=== PATIENT | male | born 1970 | race Caucasian/White ===

== ENCOUNTER 2018-09-14 06:19 | Inpatient (IN) | payer OTHER ==
[2018-09-10 10:04] VITALS: BMI 35.3
[2018-09-14] MEDS ORDERED: fentaNYL CITRATE 250 MCG/5 ML VIAL ONE (07:04)
[2018-09-14] MEDS ORDERED: PROPOFOL 20 ML ONE ×19 (07:04→11:55)
[2018-09-14] MEDS ORDERED: ROCURONIUM BROMIDE 50 MG/5 ML SYRINGE ONE (07:04)
[2018-09-14] MEDS ORDERED: SUCCINYLCHOLINE CHLORIDE 200 MG/10 ML SYRINGE ONE (07:04)
[2018-09-14] MEDS ORDERED: LIDOCAINE HCL/PF 2% SDV 5ML VIAL ONE (07:06)
[2018-09-14] MEDS ORDERED: VANCOMYCIN 1,000 MG VIAL (RESTRICTED TO ID ONLY) ONE (07:06)
[2018-09-14] MEDS ORDERED: ONDANSETRON 4 MG/2 ML VIAL ONE (07:06)
[2018-09-14] MEDS ORDERED: TRANEXAMIC ACID 1000 MG/10 ML VIAL ONE ×2 (07:06→10:25)
[2018-09-14] MEDS ORDERED: DEXAMETHASONE SOD PHOSPHATE 4 MG/1 ML VIAL ONE (07:06)
[2018-09-14] MEDS ORDERED: ceFAZolin SODIUM 1 GM VIAL ONE (07:06)
[2018-09-14] MEDS ORDERED: BENZOIN TINCTURE SWABSTICK TP ONE ×2 (07:33→07:39)
[2018-09-14] MEDS ORDERED: methylPREDNISolone ACET (DEPO) 40 MG/1 ML VIAL ONE (07:33)
[2018-09-14] MEDS ORDERED: LIDOCAINE 1%-EPI 1:100,000 30 ML MDV IJ ONE (07:33)
[2018-09-14] MEDS ORDERED: THROMBIN (BOVINE) 5,000 UNIT VIAL TP ONE ×3 (07:33→10:14)
[2018-09-14] MEDS ORDERED: HEPARIN NA (PORCINE) 5,000 UNITS/ML 1ML VIAL ONE (07:39)
[2018-09-14] MEDS ORDERED: MIDAZOLAM HCL 2 MG/2 ML SINGLE DOSE VIAL ONE ×2 (07:43)
[2018-09-14] MEDS ORDERED: VANCOMYCIN 500 MG VIAL (RESTRICTED TO ID ONLY) IVPB ONE (08:00)
[2018-09-14] MEDS ORDERED: ceFAZolin SODIUM 1 GM VIAL IVPB ONE (08:45)
[2018-09-14] MEDS ORDERED: KETAMINE HCL 200 MG/20 ML VIAL ONE (08:51)
[2018-09-14] MEDS ORDERED: ONDANSETRON 4 MG/2 ML VIAL IVPUSH PRN (09:03)
[2018-09-14] MEDS ORDERED: oxyCODONE HCL 5 MG TABLET PO PRN ×2 (09:04)
[2018-09-14] MEDS ORDERED: MORPHINE SULFATE 2 MG/ML VIAL IVPUSH PRN (09:07)
[2018-09-14] MEDS ORDERED: LACTATED RINGERS SOLUTION 1,000 ML IV SCH (09:15)
[2018-09-14] MEDS ORDERED: oxyCODONE HCL 10 MG SUSTAINED ACTING TABLET PO SCH (10:00)
--- NOTE | 2018-09-14 12:50 | PN ---
Progress Note (short form) - Note Progress Note: 48M POD #0 s/p: 1. L3, L4, L5 bilateral laminectomies & facetectomies 2. L3-L4, L4-L5 posterior instrumentation 3. L3-L4, L4-L5 discectomies 4. L3-L4, L4-L5 posterior lumbar interbody fusion 5. L3-L4, L4-L5 insertion biomechanical device 6. L3-L4, L4-L5 posterolateral arthrodesis 7. Bone allograft 8. Bone autograft 9. Bone marrow aspiration 10. Complex wound closure (20cm) -Admit to ICU post-op. -Pain control: per anesthesia team only; patient received pre-op TLIP block w/ Exparel & intrathecal duramorph; NO NSAID's. -DVT PPx: -Mechanical only: MACK's, SCD's. -Chemical: None. -Incentive spirometry q15 min. -NPO until flatus. -Rivas care; d/c when ambulating. -Post-op Ancef q6h x 3 doses. -PT/OT/Rehab, OOB. -WBAT B/L LE. -No bending, lifting (>5 lbs), or twisting for 9-12 months. -Care per ICU & medical hospitalist Dr. Elaine. -Discharge planning: f/u 7[facility]10 [facility]; call for appointment; . -Will follow. Regan Gonzalez MD (Orthopaedic Surgery).
--- NOTE | 2018-09-14 12:53 | OP ---
Operative Note - Note: Operative Date: 09/14/18 Pre-Operative Diagnosis: 1. 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 2. L3-S1 spinal stenosis with neurogenic claudication. 3. Segmental instability lumbar spine L3-L5. Severity of illness : 3. Operation: 1. L3, L4, L5 bilateral laminectomies & facetectomies. 2. L3-L4, L4- L5 posterior instrumentation. 3. L3-L4, L4-L5 discectomies. 4. L3-L4, L4-L5 posterior lumbar interbody fusion. 5. L3-L4, L4-L5 insertion biomechanical device. 6. L3-L4, L4-L5 posterolateral arthrodesis. 7. Bone allograft. 8. Bone autograft. 9. Bone marrow aspiration. 10. Complex wound closure (20cm) Post-Operative Diagnosis: Same as Pre-op Surgeon: Regan Gonzalez Guideman: Adonis Gonzalez Anesthesiologist/SPANISH SPEAKING BABYSITTER: Alesha Hernandez Anesthesia: General, Spinal Specimens Removed: L3-L4, L4-L5 discs Estimated Blood Loss (mls): 710 Blood Volume Replaced (mls): 375 (Cell Saver) Fluid Volume Replaced (mls): 1,500 (Crystalloid) Operative Report Dictated: Yes
[2018-09-14] MEDS: ACETAMINOPHEN 1000 MG/100 ML VIAL (NON FORMULARY) IVPB SCH ×3 (14:07→21:21)
[2018-09-14] MEDS ORDERED: ACETAMINOPHEN INJECTION 100 ML IVPB ONE (14:07)
[2018-09-14] MEDS ORDERED: KETOROLAC TROMETHAMINE 30 MG/1 ML VIAL IVPUSH ONE (14:56)
[2018-09-14] MEDS ORDERED: morphine SULFATE 4 MG/ML VIAL ONE (16:49)
[2018-09-14] MEDS: DOCUSATE SODIUM 100 MG CAPSULE (FP) PO SCH ×2 (17:29→21:22)
[2018-09-14] MEDS: diazePAM 5 MG TABLET PO SCH ×2 (17:30→21:22)
[2018-09-14] MEDS: LACTATED RINGERS SOLUTION 1,000 ML IV SCH (17:40)
[2018-09-14] MEDS: CYCLOBENZAPRINE HCL 10 MG TABLET (FP) PO PRN (17:59)
--- NOTE | 2018-09-14 18:34 | HP ---
Admitting History and Physical - Admission Chief Complaint: back pain History Source: Patient Limitations to Obtaining History: No Limitations - Smoking History Smoking history: Current every day smoker Have you smoked in the past 12 months: Yes Aproximately how many cigarettes per day: 30 - Alcohol/Substance Use Hx Alcohol Use: No Home Medications - Allergies Allergies/Adverse Reactions: Allergies Allergy/AdvReac Type Severity Reaction Status Date / Time Fish Containing Products Allergy Verified 09/10/18 10:30 - Home Medications Home Medications: Ambulatory Orders Cyclobenzaprine HCl 10 mg PO PRN PRN 09/10/18 Fenofibrate Nanocrystallized [Fenofibrate] 160 mg PO DAILY 09/10/18 Insulin Glargine,Hum.rec.anlog [Toujeo Max Solostar] 20 unit SQ DAILY 09/10/18 Oxycodone HCl/Acetaminophen [Endocet 10-325 mg Tablet] 1 each PO DAILY 09/10/18 Review of Systems - Review of Systems Constitutional: reports: No Symptoms Eyes: reports: No Symptoms HENT: reports: No Symptoms Neck: reports: No Symptoms Cardiovascular: reports: No Symptoms Respiratory: reports: No Symptoms Gastrointestinal: reports: No Symptoms Genitourinary: reports: No Symptoms Musculoskeletal: reports: Back Pain Integumentary: reports: No Symptoms Neurological: reports: No Symptoms Endocrine: reports: No Symptoms Hematology/Lymphatic: reports: No Symptoms Psychiatric: reports: No Symptoms Pain Intensity: 7 Physical Examination Vital Signs: Vital Signs Temperature 98 F 09/14/18 17:05 Pulse Rate 80 09/14/18 17:05 Respiratory Rate 18 09/14/18 17:05 Blood Pressure 125/77 09/14/18 17:05 O2 Sat by Pulse Oximetry (%) 100 09/14/18 17:05 Constitutional: Yes: Well Nourished, No Distress Eyes: Yes: WNL HENT: Yes: WNL Neck: Yes: WNL Cardiovascular: Yes: WNL Respiratory: Yes: WNL Gastrointestinal: Yes: WNL Renal/: Yes: WNL Musculoskeletal: Yes: Back Pain Extremities: Yes: WNL Edema: No Peripheral Pulses WNL: Yes Integumentary: Yes: WNL Wound/Incision: Yes: Clean/Dry, Well Approximated, Dressing Dry and Intact Neurological: Yes: WNL ...Motor Strength: WNL Psychiatric: Yes: WNL Labs: CBC, BMP 09/14/18 06:31 Assessment/Plan 48M POD #0 s/p: 1. L3, L4, L5 bilateral laminectomies & facetectomies 2. L3-L4, L4-L5 posterior instrumentation 3. L3-L4, L4-L5 discectomies 4. L3-L4, L4-L5 posterior lumbar interbody fusion 5. L3-L4, L4-L5 insertion biomechanical device 6. L3-L4, L4-L5 posterolateral arthrodesis 7. Bone allograft 8. Bone autograft 9. Bone marrow aspiration 10. Complex wound closure (20cm) no complications. pain management. incentive spirometry. anaesthesia consulted as his pain is severe. may need OPERATIONS SUPPORT REPRESENTATIVE on stool softeners to avoid opioid induced constipation. -GI, DVT prophylaxis. -PT/OT as tolerated -clear liquid diet started -mendez till ambulates -will monitor labs. -will f/u
[2018-09-14] MEDS: HYDROmorphone *PCA* 10MG/50ML DISP.SYRIN PCA SCH (19:57)
--- NOTE | 2018-09-14 20:01 | OP ---
DATE OF OPERATION: 09/14/2018 SURGEON: Regan Gonzalez MD CHEMICAL UNIT OPERATOR: Adonis Gonzalez MD PREOPERATIVE DIAGNOSES: Disk prolapse with associated segmental instability, L3-4, L4-5 and associated recess stenosis, vastus arthropathy. POSTOPERATIVE DIAGNOSES: Disk prolapse with associated segmental instability, L3-4, L4-5 and associated recess stenosis, vastus arthropathy. OPERATION PERFORMED: 1. Left and right L3-L4 laminectomy with superior facetectomy. 2. L3-4, L4-5 diskectomy with posterior lumbar interbody fusion at each level. 3. Insertion of interbody device (cage), L3-4 and L4-5. 4. Pedicle screw instrumentation, L3, L4, and L5. 5. Posterolateral arthrodesis, L3, L4, and L5. 6. Complex wound closure, 25 cm. 7. Bone marrow aspirate concentrate, left posterior ilium and use of autologous bone graft. 8. Use of biplane fluoroscopy and intraoperative neuromonitoring. ANESTHESIA: General. ANTIBIOTICS GIVEN: Kefzol 2 g, vancomycin 1 g preop; Kefzol 1 g at the end of the procedure; tranexamic acid 2 g provided. BLOOD LOSS: 700 mL; 350 mL Cell Saver blood given back. PROCEDURE: Patient correctly identified, brought to the operating room, placed prone on a Guy table. Lumbar spine was prepped and draped in the routine manner with Betadine scrub solution, wiped off with alcohol. DuraPrep was applied. A window drape utilized. All bony points were padded appropriately. Prior to the entry into the operating room, muscle blocks were provided and intrathecal Duramorph. A timeout was called. Imaging was available for intraoperative evaluation. OPERATION DETAILS: In the prone position, midline incision was made over the tip of the spinous process of L2 to the tip of the spinous process of L5. Subperiosteal dissection performed, exposing the bone of the spinous process and the lamina over the capsules and over the facet to the transverse plane, left- and right-hand side. The intertransverse plane was packed with sponges. Hemostasis achieved as we went along. Identification of the levels was achieved with anatomical guidelines as well as lateral fluoroscopic evaluation. Once a left and right laminectomy, as this dealt with all the appropriate left- and right facet joints appropriately using Leksell rongeurs, a central channel was cut into the laminae. Using number 4 and 5 Kerrisons, the bone was resected completely, exposing the thecal elements well. The superior facets were facilitated by incising the bone longitudinally from the pars articularis down to the inferior facet at each level, that was at the L3 and L4 level. After imploding the bone inwards, that is into the vertebral canal, this revealed the presence of readily-accessible superior facets, both left- and right-hand side at L3 and L4, these were resected completely. This freed the theca completely, and all the appropriate neural elements, that is L3 and L4 predominantly, but L2 was also freed by extending the decompression proximally. The theca was gently manipulated from left to right. At each level, that is at the L3-4 and L4-5 disks, each disk was identified. The epidural veins were noted and were massive in size. These were dealt with with bipolar Bovie. Each annulus was incised; that is both at L3-4 and L4-5 with an 11 blade. Shaving devices were placed into the interdisk spaces. The entire disk was removed at L3 as well as L4-5 using aidan, pituitary, rongeurs, as well as serrated curettes right down to healthy endplate bone at L3-4 and L4-5. Shaving was to size 12 at each level, and a size 13 Fortilink spacer and interdisk device was inserted at L3-4 and L4-5. These were tapped solidly into position, bringing about excellent reconstitution of the lumbar lordosis. Prior to this, the morselized bone from the posterior elements was packed into the interbody space at L3-4 and L4-5. That was prior to seating of the cages, thus providing extensive bone grafting into the interbody space at L3-4 and L4-5 and then the cage inserted thereafter to expand the disk heights to its anatomical position and reconstitute the lumbar lordosis. Solid fixation achieved. The pedicles at L3, L4, and L5 were identified using anatomical guidelines, guiding with lateral fluoroscopic x-ray. A 4.5 drill was utilized to drill each pedicle. Each pedicle was palpated with both a feeler. Each screw measured 45 x 6 mm. The screws were then tested with intraoperative neuromonitoring, found to be completely safe. That is each screw well above 20 mA appropriately. A size 60 aarti on the left and a size 75 aarti on the right. These rods were tightened appropriately with the appropriate caps, seating the rods in the tulips, and then, the torque device utilized to lock them solidly in position. Each intertransverse plane was then packed with bone graft. This was a combination of bone from the autologous bone as well as allograft. The marrow aspirate from the left posterior ilium was spun down for the CD34 cells, mixed with the bone graft, packed into the intertransverse plane with the bone graft. The muscle was then trimmed for fragmented retractor-related injury. This was minimal. Once the wounds were thoroughly lavaged with saline, closure in 4 layers, muscle 1 Vicryl, fascia 1 Vicryl, subcutaneous 1 and 2-0 Vicryl, skin 3-0 Monocryl with Steri-Strips. No complications. Operation went extremely well. No complications in neuromonitoring. Patient will be nursed in the ICU postoperatively. MD LYDIA [id number]
[2018-09-14] MEDS: INSULIN SLIDING SCALE (NOVOLOG) 1 VIAL SQ SCH (21:22)
[2018-09-15] MEDS: ACETAMINOPHEN 1000 MG/100 ML VIAL (NON FORMULARY) IVPB SCH (05:03)
[2018-09-15] MEDS: INSULIN (LEVEMIR) 100 UNITS/ML UNITS SQ SCH (06:45)
[2018-09-15] MEDS: INSULIN SLIDING SCALE (NOVOLOG) 1 VIAL SQ SCH ×4 (06:45→21:28)
[2018-09-15 07:47] LABS: HEMATOCRIT 39.9 % (35.4-49); HEMOGLOBIN 13.8 GM/dL (11.7-16.9); MCH 31.3 pg (25.7-33.7); MCHC 34.5 g/dl (32.0-35.9); MEAN CELL VOLUME 90.7 fl (80-96); MEAN PLT VOLUME 7.3 fl (7.5-11.1); RDW 13.7 % (11.9-15.9); WHITE BLOOD COUNT 14.2 K/mm3 (4.0-10.0)
[2018-09-15 08:44] LABS: BLOOD UREA NITROGEN 16.5 mg/dL (7-18); CALCIUM 8.1 mg/dL (8.5-10.1); CREATININE 0.8 mg/dL (0.55-1.3)
[2018-09-15] MEDS ORDERED: PT OWN MED DRAWER 7, Y5N ONE (09:02)
[2018-09-15] MEDS: PANTOPRAZOLE SODIUM 40 MG VIAL IVPUSH SCH (09:12)
[2018-09-15] MEDS: FENOFIBRIC ACID 135 MG CAP PO SCH (09:13)
[2018-09-15] MEDS: diazePAM 5 MG TABLET PO SCH ×2 (09:13→21:28)
[2018-09-15] MEDS: DOCUSATE SODIUM 100 MG CAPSULE (FP) PO SCH ×2 (09:13→21:28)
[2018-09-15 09:14] LABS: PLATELET COUNT 213 K/MM3 (134-434)
--- NOTE | 2018-09-15 11:08 | PN ---
Progress Note, Physician Chief Complaint: back pain - Current Medication List Current Medications: Active Medications Cyclobenzaprine HCl (Flexeril -) 10 mg PO PRN PRN PRN Reason: PAIN Last Admin: 09/14/18 17:59 Dose: 10 mg Diazepam (Valium -) 5 mg PO BID [facility] Last Admin: 09/15/18 09:13 Dose: 5 mg Docusate Sodium (Colace -) 100 mg PO BID [facility] Last Admin: 09/15/18 09:13 Dose: 100 mg Fenofibric Acid (Trilipix -) 135 mg PO DAILY [facility] Last Admin: 09/15/18 09:13 Dose: 135 mg Hydromorphone HCl (Hydromorphone 10 Mg/50 Ml-Ns) 10 mg SENIOR MECHANICAL DEVELOPMENT ENGINEER SENIOR MECHANICAL DEVELOPMENT ENGINEER [facility]; Protocol Stop: 09/15/18 19:14 Last Admin: 09/14/18 19:57 Dose: 10 mg Lactated Ringer's (Lactated Ringers Solution) 1,000 mls @ 125 mls/hr IV ASDIR [facility] Last Admin: 09/14/18 17:40 Dose: 125 mls/hr Insulin Aspart (Novolog Vial Sliding Scale -) 1 vial SQ ACHS [facility]; Protocol Last Admin: 09/15/18 06:45 Dose: Not Given Insulin Detemir (Levemir Vial) 20 units SQ ACBK [facility] Last Admin: 09/15/18 06:45 Dose: 20 units Pantoprazole Sodium (Protonix Iv) 40 mg IVPUSH DAILY [facility] Last Admin: 09/15/18 09:12 Dose: 40 mg - Objective Vital Signs: Vital Signs Temperature 99.6 F 09/15/18 05:00 Pulse Rate 93 H 09/15/18 05:00 Respiratory Rate 20 09/15/18 05:00 Blood Pressure 118/60 09/15/18 05:00 O2 Sat by Pulse Oximetry (%) 97 09/15/18 00:00 Constitutional: Yes: Well Nourished, Anxious Eyes: Yes: WNL HENT: Yes: WNL Neck: Yes: WNL Cardiovascular: Yes: WNL Respiratory: Yes: WNL Gastrointestinal: Yes: WNL Genitourinary: Yes: WNL Musculoskeletal: Yes: Back Pain Extremities: Yes: WNL Edema: No Peripheral Pulses WNL: Yes Integumentary: Yes: WNL Wound/Incision: Yes: Clean/Dry, Well Approximated Neurological: Yes: WNL ...Motor Strength: WNL Psychiatric: Yes: WNL Labs: CBC, BMP 09/15/18 06:20 09/15/18 06:20 Assessment/Plan 48M POD #1 s/p: 1. L3, L4, L5 bilateral laminectomies & facetectomies 2. L3-L4, L4-L5 posterior instrumentation 3. L3-L4, L4-L5 discectomies 4. L3-L4, L4-L5 posterior lumbar interbody fusion 5. L3-L4, L4-L5 insertion biomechanical device 6. L3-L4, L4-L5 posterolateral arthrodesis 7. Bone allograft 8. Bone autograft 9. Bone marrow aspiration 10. Complex wound closure (20cm) no complications. pain management. incentive spirometry. SENIOR MECHANICAL DEVELOPMENT ENGINEER pump started due to severe pain. cont valium. on stool softeners to avoid opioid induced constipation. -GI, DVT prophylaxis. -on RISS, levemir 20 units -PT/OT as tolerated -oral diet as tolerated -mendze till ambulates -labs reviewed -will f/u
--- NOTE | 2018-09-15 12:02 | PATH ---
Surgical Pathology Report Patient Name: WALT HERNANDEZ [facility]. Rec. #: [id number] /Age/Gender: 1970 (Age: 48) / M Account: [id number] Location: [facility] Taken: 09/14/2018 Received: 09/14/2018 Reported: 09/15/2018 Physicians: Regan Gonzalez M.D. Specimen(s) Received L3-S1 DISC Clinical History Spondylolisthesis Final Diagnosis DISC, L3-S1, POSTERIOR LUMBAR INTERBODY FUSION: BENIGN INTERVERTEBRAL DISC TISSUE AND BONE. Electronically Signed Mariya Scott M.D. Gross Description Received in formalin labeled "L3-S1 disc," is a 4.5 x 3.5 x 0.4 cm aggregate of guardado fragments of fibrocartilaginous tissue. A client services representative portion is submitted in one cassette. DL/09/14/2018 saudi/09/14/2018
[2018-09-15] MEDS ORDERED: INSULIN (NOVOLOG) ASPART 100 UNITS/ML 10ML VIAL ONE (12:19)
[2018-09-15] MEDS: LACTATED RINGERS SOLUTION 1,000 ML IV SCH ×2 (14:09→14:11)
[2018-09-15] MEDS: HYDROmorphone *PCA* 10MG/50ML DISP.SYRIN PCA SCH (17:03)
[2018-09-15] MEDS ORDERED: KETOROLAC TROMETHAMINE 30 MG/1 ML VIAL IM ONE (17:30)
[2018-09-16] MEDS ORDERED: HYDROmorphone *PCA* 10MG/50ML DISP.SYRIN ONE (05:46)
[2018-09-16] MEDS ORDERED: HYDROmorphone *PCA* 10MG/50ML DISP.SYRIN PCA SCH (06:45)
[2018-09-16] MEDS: INSULIN SLIDING SCALE (NOVOLOG) 1 VIAL SQ SCH ×4 (06:51→22:14)
[2018-09-16] MEDS: INSULIN (LEVEMIR) 100 UNITS/ML UNITS SQ SCH (06:51)
--- NOTE | 2018-09-16 07:12 | PN ---
Progress Note, Physician Chief Complaint: s/p lumbar laminectomy fusion under general anesthesia post op day two History of Present Illness: BL TLIP blocks for post op pain control with diluadid TOOLMAKER GRADE THREE for analgesia - Current Medication List Current Medications: Active Medications Cyclobenzaprine HCl (Flexeril -) 10 mg PO PRN PRN PRN Reason: PAIN Last Admin: 09/14/18 17:59 Dose: 10 mg Diazepam (Valium -) 5 mg PO BID [facility] Last Admin: 09/15/18 21:28 Dose: 5 mg Docusate Sodium (Colace -) 100 mg PO BID [facility] Last Admin: 09/15/18 21:28 Dose: 100 mg Fenofibric Acid (Trilipix -) 135 mg PO DAILY [facility] Last Admin: 09/15/18 09:13 Dose: 135 mg Hydromorphone HCl (Hydromorphone 10 Mg/50 Ml-Ns) 10 mg TOOLMAKER GRADE THREE TOOLMAKER GRADE THREE [facility]; Protocol Last Admin: 09/16/18 06:50 Dose: 10 mg Lactated Ringer's (Lactated Ringers Solution) 1,000 mls @ 125 mls/hr IV ASDIR [facility] Last Admin: 09/15/18 14:11 Dose: Not Given Insulin Aspart (Novolog Vial Sliding Scale -) 1 vial SQ ACHS [facility]; Protocol Last Admin: 09/16/18 06:51 Dose: Not Given Insulin Detemir (Levemir Vial) 20 units SQ ACBK [facility] Last Admin: 09/16/18 06:51 Dose: 20 units Pantoprazole Sodium (Protonix Iv) 40 mg IVPUSH DAILY [facility] Last Admin: 09/15/18 09:12 Dose: 40 mg - Objective Vital Signs: Vital Signs Temperature 100.2 F H 09/16/18 04:49 Pulse Rate 85 09/16/18 06:50 Respiratory Rate 20 09/16/18 06:50 Blood Pressure 103/65 09/16/18 06:50 O2 Sat by Pulse Oximetry (%) 99 09/16/18 06:50 Constitutional: Yes: Well Nourished Cardiovascular: Yes: WNL Respiratory: Yes: WNL Gastrointestinal: Yes: WNL Labs: CBC, BMP 09/15/18 06:20 09/15/18 06:20 Assessment/Plan Tolerating clears, pain not controlled, will increase customs entry clerk dose to 0.3mg per demand. Will continue TOOLMAKER GRADE THREE for one more day. Otherwise no adverse anesthetic complications.
[2018-09-16] MEDS: HYDROmorphone *PCA* 10MG/50ML DISP.SYRIN PCA SCH ×2 (08:58→15:36)
[2018-09-16] MEDS ORDERED: PT OWN MED DRAWER 7, Y5N ONE ×2 (10:21→17:47)
[2018-09-16] MEDS: PANTOPRAZOLE SODIUM 40 MG VIAL IVPUSH SCH (10:22)
[2018-09-16] MEDS: FENOFIBRIC ACID 135 MG CAP PO SCH (10:22)
[2018-09-16] MEDS: diazePAM 5 MG TABLET PO SCH ×2 (10:22→22:13)
[2018-09-16] MEDS: DOCUSATE SODIUM 100 MG CAPSULE (FP) PO SCH ×2 (10:22→22:13)
[2018-09-16] MEDS: ACETAMINOPHEN 325 MG TABLET (FP) PO PRN ×2 (10:33→18:21)
[2018-09-16 11:14] LABS: URINE APPEARANCE CLEAR; URINE BILIRUBIN NEGATIVE (NEGATIVE); URINE COLOR YELLOW; URINE GLUCOSE (UA) TRACE (NEGATIVE); URINE KETONE NEGATIVE (NEGATIVE); URINE LEUK ESTERASE NEGATIVE (NEGATIVE); URINE NITRITE NEGATIVE (NEGATIVE); URINE PROTEIN NEGATIVE (NEGATIVE)
--- NOTE | 2018-09-16 13:00 | CON.ID ---
Consult Consult Specialty:: infectious diseases Referred by:: Reason for Consultation:: leukocytosis,fever - History of Present Illness Chief Complaint: fever,pain History of Present Illness: 48 y/o male with history of back pain who was seen by neurosurgery and patient underwent the following procedure 1. L3, L4, L5 bilateral laminectomies & facetectomies 2. L3-L4, L4-L5 posterior instrumentation 3. L3-L4, L4-L5 discectomies 4. L3-L4, L4-L5 posterior lumbar interbody fusion 5. L3-L4, L4-L5 insertion biomechanical device 6. L3-L4, L4-L5 posterolateral arthrodesis 7. Bone allograft 8. Bone autograft 9. Bone marrow aspiration 10. Complex wound closure (20cm) post op patient was doing well,then currently spiking fevers and wbc is high patient currently having pain but says his pain is different now patient was out of bed yesterday - History Source History Provided By: Patient Limitations to Obtaining History: No Limitations - Alcohol/Substance Use Hx Alcohol Use: No - Smoking History Smoking history: Current every day smoker Have you smoked in the past 12 months: Yes Aproximately how many cigarettes per day: 30 Home Medications - Allergies Allergies/Adverse Reactions: Allergies Allergy/AdvReac Type Severity Reaction Status Date / Time Fish Containing Products Allergy Verified 09/10/18 10:30 shellfish derived Allergy Verified 09/14/18 19:26 - Home Medications Home Medications: Ambulatory Orders Cyclobenzaprine HCl 10 mg PO PRN PRN 09/10/18 Fenofibrate Nanocrystallized [Fenofibrate] 160 mg PO DAILY 09/10/18 Insulin Glargine,Hum.rec.anlog [Pancho Rogers] 20 unit SQ DAILY 09/10/18 Oxycodone HCl/Acetaminophen [Endocet 10-325 mg Tablet] 1 each PO DAILY 09/10/18 Review of Systems - Review of Systems Constitutional: reports: Fever Eyes: reports: No Symptoms HENT: reports: No Symptoms Neck: reports: No Symptoms Cardiovascular: reports: No Symptoms Respiratory: reports: No Symptoms Gastrointestinal: reports: No Symptoms Musculoskeletal: reports: No Symptoms Integumentary: reports: No Symptoms Neurological: reports: No Symptoms Endocrine: reports: No Symptoms Hematology/Lymphatic: reports: No Symptoms Psychiatric: reports: No Symptoms Physical Exam Vital Signs: Vital Signs Temperature 100.2 F H 09/16/18 04:49 Pulse Rate 112 H 09/16/18 09:00 Respiratory Rate 20 09/16/18 09:00 Blood Pressure 135/79 09/16/18 09:00 O2 Sat by Pulse Oximetry (%) 95 09/16/18 09:00 Constitutional: Yes: Calm, Mild Distress Cardiovascular: Yes: Regular Rate and Rhythm Respiratory: Yes: Regular, CTA Bilaterally Gastrointestinal: Yes: Normal Bowel Sounds, Soft Musculoskeletal: Yes: WNL Extremities: Yes: WNL Wound/Incision: Yes: Dressing Dry and Intact Neurological: Yes: Alert, Oriented Psychiatric: Yes: Alert, Oriented Labs: CBC, BMP 09/15/18 06:20 09/15/18 06:20 Imaging - Results Chest X-ray: Report Reviewed, Image Reviewed Assessment/Plan patient post op wound dressing removed patient has bloody drainage i am going to start empiric abx for now will see how the wound behaves monitor wbc wound care rest as per the team
[2018-09-16] MEDS ORDERED: PIPERACILLIN/TAZOBACTAM 3.375 GM VIAL IVPB ONE ×2 (14:12→17:47)
[2018-09-16] MEDS ORDERED: DEXTROSE 5%-WATER - 50 ML IVPB ONE ×2 (14:12→17:48)
[2018-09-16] MEDS: PIPERACILLIN/TAZOB 3.375 GM 3.375 GM in DEXTROSE 5%-WATER - 50 ML IVPB SCH ×2 (14:18→17:54)
[2018-09-16] MEDS: LACTATED RINGERS SOLUTION 1,000 ML IV SCH ×2 (14:19→15:58)
--- NOTE | 2018-09-16 15:03 | PN ---
Progress Note (short form) - Note Progress Note: Anesthesia/ pain management follow up POD#2, on federal judge, using the federal judge and wishing to continue it today. We'll reevaluate tomorrow.
--- NOTE | 2018-09-16 17:03 | PN ---
Progress Note, Physician Chief Complaint: back pain - Current Medication List Current Medications: Active Medications Acetaminophen (Tylenol -) 650 mg PO Q6H PRN PRN Reason: FEVER Last Admin: 09/16/18 10:33 Dose: 650 mg Cyclobenzaprine HCl (Flexeril -) 10 mg PO PRN PRN PRN Reason: PAIN Last Admin: 09/14/18 17:59 Dose: 10 mg Diazepam (Valium -) 5 mg PO BID [facility] Last Admin: 09/16/18 10:22 Dose: 5 mg Docusate Sodium (Colace -) 100 mg PO BID [facility] Last Admin: 09/16/18 10:22 Dose: 100 mg Fenofibric Acid (Trilipix -) 135 mg PO DAILY [facility] Last Admin: 09/16/18 10:22 Dose: 135 mg Hydromorphone HCl (Hydromorphone 10 Mg/50 Ml-Ns) 10 mg RUBBISH COLLECTOR RUBBISH COLLECTOR [facility]; Protocol Last Admin: 09/16/18 15:36 Dose: 10 mg Lactated Ringer's (Lactated Ringers Solution) 1,000 mls @ 125 mls/hr IV ASDIR [facility] Last Admin: 09/16/18 15:58 Dose: 125 mls/hr Piperacillin Sod/Tazobactam (Sod 3.375 gm/ Dextrose) 50 mls @ 100 mls/hr IVPB Q8H-IV [facility]; Protocol Last Admin: 09/16/18 14:18 Dose: 100 mls/hr Insulin Aspart (Novolog Vial Sliding Scale -) 1 vial SQ ACHS [facility]; Protocol Last Admin: 09/16/18 11:53 Dose: 2 units Insulin Detemir (Levemir Vial) 20 units SQ ACBK [facility] Last Admin: 09/16/18 06:51 Dose: 20 units Pantoprazole Sodium (Protonix Iv) 40 mg IVPUSH DAILY [facility] Last Admin: 09/16/18 10:22 Dose: 40 mg - Objective Vital Signs: Vital Signs Temperature 98.9 F 09/16/18 14:28 Pulse Rate 106 H 09/16/18 14:28 Respiratory Rate 20 09/16/18 14:28 Blood Pressure 119/61 09/16/18 14:28 O2 Sat by Pulse Oximetry (%) 95 09/16/18 09:00 Constitutional: Yes: Well Nourished, Anxious Eyes: Yes: WNL HENT: Yes: WNL Neck: Yes: WNL Cardiovascular: Yes: WNL Respiratory: Yes: WNL Gastrointestinal: Yes: Hypoactive Bowel Sounds Genitourinary: Yes: WNL Musculoskeletal: Yes: Back Pain Extremities: Yes: WNL Edema: No Peripheral Pulses WNL: Yes Integumentary: Yes: WNL Wound/Incision: Yes: Clean/Dry, Well Approximated Neurological: Yes: WNL ...Motor Strength: WNL Psychiatric: Yes: WNL Labs: CBC, BMP 09/15/18 06:20 09/15/18 06:20 Assessment/Plan 48M POD #2 s/p: 1. L3, L4, L5 bilateral laminectomies & facetectomies 2. L3-L4, L4-L5 posterior instrumentation 3. L3-L4, L4-L5 discectomies 4. L3-L4, L4-L5 posterior lumbar interbody fusion 5. L3-L4, L4-L5 insertion biomechanical device 6. L3-L4, L4-L5 posterolateral arthrodesis 7. Bone allograft 8. Bone autograft 9. Bone marrow aspiration 10. Complex wound closure (20cm) no complications. pain management. incentive spirometry. RUBBISH COLLECTOR pump started due to severe pain. cont valium. on stool softeners to avoid opioid induced constipation. -fever, leucocytosis: ID eval appreciated. started on zosyn empirically. pulmonary assessment for possible cavitation on CXR. -GI, DVT prophylaxis. -on RISS, levemir 20 units -PT/OT as tolerated -oral diet as tolerated -labs reviewed assessment and plan discussed with pt and staff phone calls answered throughout the day -hopefully will DC within 48 hours. 35 min
[2018-09-17] MEDS ORDERED: DEXTROSE 5%-WATER - 50 ML IVPB ONE ×3 (01:10→17:24)
[2018-09-17] MEDS ORDERED: PIPERACILLIN/TAZOBACTAM 3.375 GM VIAL IVPB ONE ×3 (01:10→17:24)
[2018-09-17] MEDS: PIPERACILLIN/TAZOB 3.375 GM 3.375 GM in DEXTROSE 5%-WATER - 50 ML IVPB SCH ×3 (01:33→17:29)
[2018-09-17] MEDS: LACTATED RINGERS SOLUTION 1,000 ML IV SCH ×2 (02:40→17:22)
[2018-09-17] MEDS: HYDROmorphone *PCA* 10MG/50ML DISP.SYRIN PCA SCH ×2 (03:41→12:26)
[2018-09-17] MEDS: INSULIN SLIDING SCALE (NOVOLOG) 1 VIAL SQ SCH ×4 (06:13→21:21)
[2018-09-17] MEDS: INSULIN (LEVEMIR) 100 UNITS/ML UNITS SQ SCH (07:09)
[2018-09-17] MEDS ORDERED: INSULIN (NOVOLOG) ASPART 100 UNITS/ML 10ML VIAL ONE (07:14)
[2018-09-17] MEDS ORDERED: INSULIN (LEVEMIR) 100 UNITS/ML UNITS SQ ONE (07:15)
[2018-09-17 08:10] LABS: HEMATOCRIT 34.4 % (35.4-49); MCH 31.3 pg (25.7-33.7); MCHC 34.8 g/dl (32.0-35.9); MEAN PLT VOLUME 7.3 fl (7.5-11.1); RBC 3.82 M/mm3 (4.00-5.60); RDW 13.4 % (11.9-15.9); WHITE BLOOD COUNT 10.8 K/mm3 (4.0-10.0)
[2018-09-17 08:11] LABS: BLOOD UREA NITROGEN 9.7 mg/dL (7-18); CALCIUM 7.9 mg/dL (8.5-10.1); CREATININE 0.8 mg/dL (0.55-1.3); POTASSIUM 3.6 mmol/L (3.5-5.1)
[2018-09-17 08:37] LABS: PLATELET COUNT 206 K/MM3 (134-434)
--- NOTE | 2018-09-17 09:37 | PN ---
Progress Note, Physician Chief Complaint: back pain - Current Medication List Current Medications: Active Medications Acetaminophen (Tylenol -) 650 mg PO Q6H PRN PRN Reason: FEVER Last Admin: 09/16/18 18:21 Dose: 650 mg Cyclobenzaprine HCl (Flexeril -) 10 mg PO PRN PRN PRN Reason: PAIN Last Admin: 09/14/18 17:59 Dose: 10 mg Diazepam (Valium -) 5 mg PO BID [facility] Last Admin: 09/16/18 22:13 Dose: 5 mg Docusate Sodium (Colace -) 100 mg PO BID [facility] Last Admin: 09/16/18 22:13 Dose: 100 mg Fenofibric Acid (Trilipix -) 135 mg PO DAILY [facility] Last Admin: 09/16/18 10:22 Dose: 135 mg Hydromorphone HCl (Hydromorphone 10 Mg/50 Ml-Ns) 10 mg EPILEPSY PHYSICIAN EPILEPSY PHYSICIAN [facility]; Protocol Last Admin: 09/17/18 03:41 Dose: 10 mg Lactated Ringer's (Lactated Ringers Solution) 1,000 mls @ 125 mls/hr IV ASDIR YELITZA Last Admin: 09/17/18 02:40 Dose: 125 mls/hr Piperacillin Sod/Tazobactam (Sod 3.375 gm/ Dextrose) 50 mls @ 100 mls/hr IVPB Q8H-IV [facility]ELITZA; Protocol Last Admin: 09/17/18 01:33 Dose: 100 mls/hr Insulin Aspart (Novolog Vial Sliding Scale -) 1 vial SQ ACHS [facility]; Protocol Last Admin: 09/17/18 06:13 Dose: Not Given Insulin Detemir (Levemir Vial) 20 units SQ ACBK [facility] Last Admin: 09/17/18 07:09 Dose: 20 units Pantoprazole Sodium (Protonix Iv) 40 mg IVPUSH DAILY [facility] Last Admin: 09/16/18 10:22 Dose: 40 mg - Objective Vital Signs: Vital Signs Temperature 99.3 F 09/17/18 06:05 Pulse Rate 104 H 09/17/18 06:05 Respiratory Rate 20 09/17/18 06:05 Blood Pressure 120/61 09/17/18 06:05 O2 Sat by Pulse Oximetry (%) 97 09/17/18 05:00 Constitutional: Yes: Well Nourished Eyes: Yes: WNL HENT: Yes: WNL Neck: Yes: WNL Cardiovascular: Yes: WNL Respiratory: Yes: WNL Gastrointestinal: Yes: WNL Genitourinary: Yes: WNL Musculoskeletal: Yes: Back Pain Extremities: Yes: WNL Edema: No Peripheral Pulses WNL: Yes Integumentary: Yes: WNL Wound/Incision: Yes: Clean/Dry, Well Approximated Neurological: Yes: WNL ...Motor Strength: WNL Psychiatric: Yes: WNL Labs: CBC, BMP 09/17/18 07:15 09/17/18 07:15 Assessment/Plan 48M POD #3 s/p: 1. L3, L4, L5 bilateral laminectomies & facetectomies 2. L3-L4, L4-L5 posterior instrumentation 3. L3-L4, L4-L5 discectomies 4. L3-L4, L4-L5 posterior lumbar interbody fusion 5. L3-L4, L4-L5 insertion biomechanical device 6. L3-L4, L4-L5 posterolateral arthrodesis 7. Bone allograft 8. Bone autograft 9. Bone marrow aspiration 10. Complex wound closure (20cm) no complications. pain management. incentive spirometry. EPILEPSY PHYSICIAN pump started due to severe pain. cont valium. on stool softeners to avoid opioid induced constipation. -fever, leucocytosis: ID eval appreciated. infiltrates confirmed on chest CT. on IV zosyn. pulmonary assessment for possible cavitation on CXR. CT chest done. no cavitation identified. however, splenomegaly and lymphadenopathy noted. hem/onc eval requested. -GI, DVT prophylaxis. -on RISS, levemir 20 units -PT/OT as tolerated -oral diet as tolerated. advanced to diabetic diet -labs reviewed assessment and plan discussed with pt and staff phone calls answered throughout the day -hopefully will DC within 48 hours. 35 min
[2018-09-17] MEDS ORDERED: PT OWN MED DRAWER 7, Y5N ONE (09:56)
[2018-09-17] MEDS: PANTOPRAZOLE SODIUM 40 MG VIAL IVPUSH SCH (10:12)
[2018-09-17] MEDS: DOCUSATE SODIUM 100 MG CAPSULE (FP) PO SCH ×2 (10:12→21:19)
[2018-09-17] MEDS: diazePAM 5 MG TABLET PO SCH ×2 (10:12→21:19)
[2018-09-17] MEDS: FENOFIBRIC ACID 135 MG CAP PO SCH (10:12)
[2018-09-17] MEDS: CYCLOBENZAPRINE HCL 10 MG TABLET (FP) PO PRN (10:12)
--- NOTE | 2018-09-17 13:14 | PN ---
Progress Note, Physician History of Present Illness: patient stable no new issues sero sang discharge from the wound - Current Medication List Current Medications: Active Medications Acetaminophen (Tylenol -) 650 mg PO Q6H PRN PRN Reason: FEVER Last Admin: 09/16/18 18:21 Dose: 650 mg Cyclobenzaprine HCl (Flexeril -) 10 mg PO PRN PRN PRN Reason: PAIN Last Admin: 09/17/18 10:12 Dose: 10 mg Diazepam (Valium -) 5 mg PO BID [facility] Last Admin: 09/17/18 10:12 Dose: 5 mg Docusate Sodium (Colace -) 100 mg PO BID [facility] Last Admin: 09/17/18 10:12 Dose: 100 mg Fenofibric Acid (Trilipix -) 135 mg PO DAILY [facility] Last Admin: 09/17/18 10:12 Dose: 135 mg Hydromorphone HCl (Hydromorphone 10 Mg/50 Ml-Ns) 10 mg [employer]PORATION LAWYER CORPORATION LAWYER [facility]; Protocol Last Admin: 09/17/18 12:26 Dose: 10 mg Lactated Ringer's (Lactated Ringers Solution) 1,000 mls @ 125 mls/hr IV ASDIR [facility] Last Admin: 09/17/18 02:40 Dose: 125 mls/hr Piperacillin Sod/Tazobactam (Sod 3.375 gm/ Dextrose) 50 mls @ 100 mls/hr IVPB Q8H-IV [facility]; Protocol Last Admin: 09/17/18 10:12 Dose: 100 mls/hr Insulin Aspart (Novolog Vial Sliding Scale -) 1 vial SQ ACHS [facility]; Protocol Last Admin: 09/17/18 12:47 Dose: Not Given Insulin Detemir (Levemir Vial) 20 units SQ ACBK [facility] Last Admin: 09/17/18 07:09 Dose: 20 units Pantoprazole Sodium (Protonix Iv) 40 mg IVPUSH DAILY [facility] Last Admin: 09/17/18 10:12 Dose: 40 mg - Objective Vital Signs: Vital Signs Temperature 99.3 F 09/17/18 06:05 Pulse Rate 104 H 09/17/18 06:05 Respiratory Rate 20 09/17/18 06:05 Blood Pressure 120/61 09/17/18 06:05 O2 Sat by Pulse Oximetry (%) 97 09/17/18 05:00 Constitutional: Yes: No Distress, Calm Cardiovascular: Yes: Regular Rate and Rhythm Respiratory: Yes: Regular, CTA Bilaterally Gastrointestinal: Yes: Normal Bowel Sounds, Soft Musculoskeletal: Yes: WNL Extremities: Yes: WNL Neurological: Yes: Alert, Oriented Psychiatric: Yes: Alert, Oriented Labs: CBC, BMP 09/17/18 07:15 09/17/18 07:15 Assessment/Plan still with serous draiange wbc trending down ct seen and findings noted heam/onc going to evaluate will jaja kerns wound care rest as per the team
--- NOTE | 2018-09-17 13:43 | CON.PULM ---
Consult Consult Specialty:: PULMONARY Referred by:: Dr Elaine Reason for Consultation:: abnormal CXR - History of Present Illness Chief Complaint: back pain History of Present Illness: 48yo male with h/o hyperlipidemia, DM who was admitted for an elective lumbar laminectomy without reported complications. Post op developed fevers and leukocytosis and imaging showing basilar changes. He denies shortness of breath , cough or chest discomfort. He attributes the fevers to the room temperature. CT chest confirming bibasilar consolidations and patchy infiltrates. Was started on Zosyn for pneumonia. - History Source History Provided By: Patient, Medical Record Limitations to Obtaining History: No Limitations - Past Medical History Cardio/Vascular: Yes: Hyperlipdemia Endocrine: Yes: Diabetes Mellitus - Alcohol/Substance Use Hx Alcohol Use: No - Smoking History Smoking history: Current every day smoker Have you smoked in the past 12 months: Yes Aproximately how many cigarettes per day: 30 Home Medications - Allergies Allergies/Adverse Reactions: Allergies Allergy/AdvReac Type Severity Reaction Status Date / Time Fish Containing Products Allergy Verified 09/10/18 10:30 shellfish derived Allergy Verified 09/14/18 19:26 - Home Medications Home Medications: Ambulatory Orders Cyclobenzaprine HCl 10 mg PO PRN PRN 09/10/18 Fenofibrate Nanocrystallized [Fenofibrate] 160 mg PO DAILY 09/10/18 Insulin Glargine,Hum.rec.anlog [Pancho Rogers] 20 unit SQ DAILY 09/10/18 Oxycodone HCl/Acetaminophen [Endocet 10-325 mg Tablet] 1 each PO DAILY 09/10/18 Review of Systems - Review of Systems Constitutional: reports: Chills, Fever. denies: Weakness Eyes: denies: Recent Change in Vision HENT: denies: Nasal Congestion, Throat Pain Neck: denies: Stiffness, Tenderness Cardiovascular: denies: Chest Pain, Edema, Palpitations, Shortness of Breath Respiratory: denies: Cough, Hemoptysis, SOB, Wheezing Gastrointestinal: denies: Abdominal Pain, Nausea, Vomiting Genitourinary: denies: Dysuria, Hematuria Neurological: denies: Dizziness, Headache Endocrine: denies: Unexplained Weight Loss Physical Exam Vital Sings: Vital Signs Temperature 99.3 F 09/17/18 06:05 Pulse Rate 104 H 09/17/18 06:05 Respiratory Rate 20 09/17/18 06:05 Blood Pressure 120/61 09/17/18 06:05 O2 Sat by Pulse Oximetry (%) 97 09/17/18 05:00 Constitutional: Yes: Calm Eyes: Yes: Conjunctiva Clear, EOM Intact HENT: Yes: Atraumatic, Normocephalic Neck: Yes: Supple, Trachea Midline Cardiovascular: Yes: Regular Rate and Rhythm Respiratory: Yes: Regular, Diminished (decreased breath sounds at the bases) ...Clubbing: No Gastrointestinal: Yes: Normal Bowel Sounds, Soft. No: Tenderness Edema: No Neurological: Yes: Alert, Oriented Labs: CBC, BMP 09/17/18 07:15 09/17/18 07:15 Imaging - Results Chest X-ray: Report Reviewed, Image Reviewed Cat Scan: Report Reviewed, Image Reviewed (bibasilar consolidations, patchy infiltrates) Problem List - Problems (1) Pneumonia Code(s): J18.9 - PNEUMONIA, UNSPECIFIED ORGANISM (2) Sepsis Code(s): A41.9 - SEPSIS, UNSPECIFIED ORGANISM Assessment/Plan Lumbar Stenosis with radiculopathy and neurogenic claudication s/p Lumbar Laminectomies Post op Fevers Pneumonia Sepsis Hyperlipidemia DM Smoker - agree with antibiotics, likely can change to PO when pt defervesces and leukocytosis improved - f/u cultures - monitor fever curve, WBC trend - incentive spirometry - pain control - will need outpt f/u of chest imaging to ensure resolution of infiltrates - DVT prophylaxis - smoking cessation Thank you for this consult Benito Pate MD
--- NOTE | 2018-09-17 14:18 | CONSULT ---
Consultation: CONSULT REQUEST: HEME/ONC HISTORY OF PRESENT ILLNESS: Patient is a 48 yo M with a PMHx of newly diagnosed DM, hypertriglyceridemia, now POD #3 s/p elective lumbar laminectomy without reported complications. Patient developed fevers and leukocytosis post op with CT Chest revealing B/L lower and upper infiltrates and mildly prominent medistinal, and axillary lymph nodes. Tmax temp of 102 in 24 hours. Patient currently has no complaints. Denies fevers, chills, nausea, vomiting, diarrhea, sob, chest pain, recent illness, travel. He says he lost at least 50 lbs intentionally because of stress over the last year. Heme/onc consulted for lymphadenopathy shown on imaging and mild splenomegaly. Family hx: adopted. Social: tobacco use 1-2 PPD for 20 years. Sexually active with 1 detention partner, no contraception REVIEW OF SYSTEMS: CONSTITUTIONAL: weight loss over 50 pounds. Absent: fever, chills, diaphoresis, generalized weakness, malaise, loss of appetite HEENT: Absent: rhinorrhea, nasal congestion, throat pain, throat swelling, difficulty swallowing, mouth swelling, ear pain, eye pain, visual changes CARDIOVASCULAR: Absent: chest pain, syncope, palpitations, irregular heart rate, lightheadedness , peripheral edema RESPIRATORY: Absent: cough, shortness of breath, dyspnea with exertion, orthopnea, wheezing, stridor, hemoptysis GASTROINTESTINAL: Absent: abdominal pain, abdominal distension, nausea, vomiting, diarrhea, constipation, melena, hematochezia GENITOURINARY: Absent: dysuria, frequency, urgency, hesitancy, hematuria, flank pain, genital pain MUSCULOSKELETAL: Absent: myalgia, arthralgia, joint swelling, back pain, neck pain SKIN: Absent: rash, itching, pallor HEMATOLOGIC/IMMUNOLOGIC: Absent: easy bleeding, easy bruising, lymphadenopathy, frequent infections ENDOCRINE: Absent: unexplained weight gain, unexplained weight loss, heat intolerance, cold intolerance PHYSICAL EXAMINATION Vital Signs - 24 hr 09/16/18 09/16/18 09/16/18 14:28 17:00 17:16 Temperature 98.9 F 101.2 F H Pulse Rate 106 H 107 H 107 H Respiratory 20 20 20 Rate Blood Pressure 119/61 132/64 132/64 O2 Sat by Pulse 95 Oximetry (%) 07/17/19 07/17/19 07/17/19 18:54 20:37 21:00 Temperature 102 F H 97.8 F Pulse Rate 102 H 102 H Respiratory 18 18 Rate Blood Pressure 115/67 115/67 O2 Sat by Pulse 97 Oximetry (%) 09/17/18 09/17/18 09/17/18 01:00 03:41 05:00 Temperature Pulse Rate 104 H 98 H 102 H Respiratory 18 18 18 Rate Blood Pressure 120/71 131/75 118/72 O2 Sat by Pulse 97 96 97 Oximetry (%) 09/17/18 06:05 Temperature 99.3 F Pulse Rate 104 H Respiratory 20 Rate Blood Pressure 120/61 O2 Sat by Pulse Oximetry (%) GENERAL: Awake, alert, and fully oriented, in no acute distress. HEAD: Normal with no signs of trauma. EYES: Pupils equal, round and reactive to light, extraocular movements intact, sclera anicteric, conjunctiva clear. EARS, NOSE, THROAT: oropharynx clear without exudates. Moist mucous membranes. NECK: supple without lymphadenopathy, JVD, or masses. LUNGS: Breath sounds equal, clear to auscultation bilaterally. No wheezes, and no crackles. HEART: Regular rate and rhythm, normal S1 and S2 without murmur, rub or gallop. ABDOMEN: obese, Distended (says its his baseline), nontender. UPPER EXTREMITIES: 2+ pulses, warm, No peripheral edema. no axillary lymph nodes palpated LOWER EXTREMITIES: 2+ pulses, No peripheral edema. NEUROLOGICAL: Cranial nerves II-XII intact. Normal speech. Testes: no tenderness, no discharge, no masses palpable Laboratory Results - last 24 hr 09/16/18 09/16/18 09/17/18 17:01 22:10 05:42 WBC RBC Hgb Hct MCV MCH MCHC RDW Plt Count MPV Sodium Potassium Chloride Carbon Dioxide Anion Gap BUN Creatinine Est GFR (CKD-EPI)AfAm Est GFR (CKD-EPI)NonAf POC Glucometer 132 114 116 Random Glucose Calcium 09/17/18 09/17/18 09/17/18 07:15 07:15 12:33 WBC 10.8 H RBC 3.82 L Hgb 12.0 Hct 34.4 L MCV 90.0 MCH 31.3 MCHC 34.8 RDW 13.4 Plt Count 206 MPV 7.3 L Sodium 135 L Potassium 3.6 Chloride 99 Carbon Dioxide 31 Anion Gap 5 L BUN 9.7 Creatinine 0.8 Est GFR (CKD-EPI)AfAm 124.16 Est GFR (CKD-EPI)NonAf 107.13 POC Glucometer 92 Random Glucose 108 H Calcium 7.9 L Active Medications Generic Name Dose Route Start Last Admin Trade Name Freq PRN Reason Stop Dose Admin Acetaminophen 650 mg 09/16/18 10:30 09/16/18 18:21 Tylenol - PO 650 mg Q6H PRN Administration FEVER Cyclobenzaprine HCl 10 mg 09/14/18 12:50 09/17/18 10:12 Flexeril - PO 10 mg PRN PRN Administration PAIN Diazepam 5 mg 09/14/18 10:00 09/17/18 10:12 Valium - PO 5 mg BID YELITZA Administration Docusate Sodium 100 mg 09/14/18 10:00 09/17/18 10:12 Colace - PO 100 mg BID YELITZA Administration Fenofibric Acid 135 mg 09/15/18 10:00 09/17/18 10:12 Trilipix - PO 135 mg DAILY YELITZA Administration Hydromorphone HCl 10 mg 09/16/18 07:10 09/17/18 12:26 Hydromorphone 10 Mg/50 Ml-Ns UTILITY PIPE LAYER 10 mg UTILITY PIPE LAYER YELITZA Administration Protocol Lactated Ringer's 1,000 mls @ 125 mls/hr 09/14/18 13:00 09/17/18 02:40 Lactated Ringers Solution IV 125 mls/hr ASDIR YELITZA Administration Piperacillin Sod/Tazobactam 50 mls @ 100 mls/hr 09/16/18 13:15 09/17/18 10:12 Sod 3.375 gm/ Dextrose IVPB 100 mls/hr Q8H-IV YELITZA Administration Protocol Insulin Aspart 1 vial 09/14/18 22:00 09/17/18 12:47 Novolog Vial Sliding Scale - SQ Not Given ACHS YELITZA Protocol Insulin Detemir 20 units 09/15/18 07:00 09/17/18 07:09 Levemir Vial SQ 20 units ACBK YELITZA Administration Pantoprazole Sodium 40 mg 09/15/18 10:00 09/17/18 10:12 Protonix Iv IVPUSH 40 mg DAILY YELITZA Administration ASSESSMENT/PLAN: #Lymphadenopathy #s/p Lumbar Laminectomies #Post-Op fevers #PNA Dispo: We will continue to follow the patient. Thank you for this consultative opportunity. ATTENDING PHYSICIAN STATEMENT I saw and evaluated the patient. I reviewed the resident's note and discussed the case with the resident. I agree with the resident's findings and plan as documented. SUBJECTIVE: OBJECTIVE: ASSESSMENT AND PLAN:
[2018-09-18] MEDS: HYDROmorphone *PCA* 10MG/50ML DISP.SYRIN PCA SCH ×2 (00:23→12:29)
[2018-09-18] MEDS ORDERED: PIPERACILLIN/TAZOBACTAM 3.375 GM VIAL IVPB ONE ×3 (01:07→16:50)
[2018-09-18] MEDS ORDERED: DEXTROSE 5%-WATER - 50 ML IVPB ONE ×2 (01:08→09:26)
[2018-09-18] MEDS: PIPERACILLIN/TAZOB 3.375 GM 3.375 GM in DEXTROSE 5%-WATER - 50 ML IVPB SCH ×3 (01:26→17:03)
[2018-09-18] MEDS: INSULIN SLIDING SCALE (NOVOLOG) 1 VIAL SQ SCH ×2 (06:59→17:08)
[2018-09-18] MEDS: INSULIN (LEVEMIR) 100 UNITS/ML UNITS SQ SCH (07:06)
[2018-09-18] MEDS ORDERED: INSULIN (NOVOLOG) ASPART 100 UNITS/ML 10ML VIAL ONE (07:14)
[2018-09-18] MEDS ORDERED: PT OWN MED DRAWER 7, Y5N ONE (09:26)
[2018-09-18] MEDS: DOCUSATE SODIUM 100 MG CAPSULE (FP) PO SCH (10:21)
[2018-09-18] MEDS: CYCLOBENZAPRINE HCL 10 MG TABLET (FP) PO PRN (10:21)
[2018-09-18] MEDS: PANTOPRAZOLE SODIUM 40 MG VIAL IVPUSH SCH (10:21)
[2018-09-18] MEDS: diazePAM 5 MG TABLET PO SCH (10:21)
[2018-09-18] MEDS: FENOFIBRIC ACID 135 MG CAP PO SCH (10:22)
[2018-09-18 13:54] VITALS: BP 123/84; PULSE 99; TEMP 98.3
--- NOTE | 2018-09-18 15:42 | PN ---
Progress Note, Physician Chief Complaint: back pain - Current Medication List Current Medications: Active Medications Acetaminophen (Tylenol -) 650 mg PO Q6H PRN PRN Reason: FEVER Last Admin: 09/16/18 18:21 Dose: 650 mg Cyclobenzaprine HCl (Flexeril -) 10 mg PO PRN PRN PRN Reason: PAIN Last Admin: 09/18/18 10:21 Dose: 10 mg Diazepam (Valium -) 5 mg PO BID [facility] Last Admin: 09/18/18 10:21 Dose: 5 mg Docusate Sodium (Colace -) 100 mg PO BID [facility] Last Admin: 09/18/18 10:21 Dose: 100 mg Fenofibric Acid (Trilipix -) 135 mg PO DAILY [facility] Last Admin: 09/18/18 10:22 Dose: 135 mg Hydromorphone HCl (Hydromorphone 10 Mg/50 Ml-Ns) 10 mg REGENERATOR OPERATOR REGENERATOR OPERATOR [facility]; Protocol Last Admin: 09/18/18 12:29 Dose: 10 mg Lactated Ringer's (Lactated Ringers Solution) 1,000 mls @ 125 mls/hr IV ASDIR [facility] Last Admin: 09/17/18 17:22 Dose: 125 mls/hr Piperacillin Sod/Tazobactam (Sod 3.375 gm/ Dextrose) 50 mls @ 100 mls/hr IVPB Q8H-IV [facility]; Protocol Last Admin: 09/18/18 10:21 Dose: 100 mls/hr Insulin Aspart (Novolog Vial Sliding Scale -) 1 vial SQ ACHS [facility]; Protocol Last Admin: 09/18/18 06:59 Dose: Not Given Insulin Detemir (Levemir Vial) 20 units SQ ACBK [facility] Last Admin: 09/18/18 07:06 Dose: 20 units Pantoprazole Sodium (Protonix Iv) 40 mg IVPUSH DAILY [facility] Last Admin: 09/18/18 10:21 Dose: 40 mg - Objective Vital Signs: Vital Signs Temperature 98.3 F 09/18/18 13:54 Pulse Rate 99 H 09/18/18 13:54 Respiratory Rate 18 09/18/18 13:54 Blood Pressure 123/84 09/18/18 13:54 O2 Sat by Pulse Oximetry (%) 94 L 09/18/18 12:29 Constitutional: Yes: Well Nourished, Anxious Eyes: Yes: WNL HENT: Yes: WNL Neck: Yes: WNL Cardiovascular: Yes: WNL Respiratory: Yes: WNL Gastrointestinal: Yes: WNL Genitourinary: Yes: WNL Musculoskeletal: Yes: Back Pain Extremities: Yes: WNL Edema: No Peripheral Pulses WNL: Yes Integumentary: Yes: WNL Wound/Incision: Yes: Draining Neurological: Yes: WNL ...Motor Strength: WNL Psychiatric: Yes: WNL Labs: CBC, BMP 09/17/18 07:15 09/17/18 07:15 Assessment/Plan 48M POD #3 s/p: 1. L3, L4, L5 bilateral laminectomies & facetectomies 2. L3-L4, L4-L5 posterior instrumentation 3. L3-L4, L4-L5 discectomies 4. L3-L4, L4-L5 posterior lumbar interbody fusion 5. L3-L4, L4-L5 insertion biomechanical device 6. L3-L4, L4-L5 posterolateral arthrodesis 7. Bone allograft 8. Bone autograft 9. Bone marrow aspiration 10. Complex wound closure (20cm) no complications. cont pain management. incentive spirometry. REGENERATOR OPERATOR pump started due to severe pain. cont valium. on stool softeners to avoid opioid induced constipation. -fever, leucocytosis: ID eval appreciated. infiltrates confirmed on chest CT. on IV zosyn. CT chest done. no cavitation identified. however, splenomegaly and lymphadenopathy noted. -GI, DVT prophylaxis. -on RISS, levemir 20 units -PT/OT as tolerated -oral diet as tolerated. advanced to diabetic diet -labs reviewed assessment and plan discussed with pt and staff phone calls answered throughout the day -hopefully will DC home later today. 35 min
--- NOTE | 2018-09-18 16:06 | PN ---
Progress Note, Physician - Current Medication List Current Medications: Active Medications Acetaminophen (Tylenol -) 650 mg PO Q6H PRN PRN Reason: FEVER Last Admin: 09/16/18 18:21 Dose: 650 mg Cyclobenzaprine HCl (Flexeril -) 10 mg PO PRN PRN PRN Reason: PAIN Last Admin: 09/18/18 10:21 Dose: 10 mg Diazepam (Valium -) 5 mg PO BID [facility] Last Admin: 09/18/18 10:21 Dose: 5 mg Docusate Sodium (Colace -) 100 mg PO BID [facility] Last Admin: 09/18/18 10:21 Dose: 100 mg Fenofibric Acid (Trilipix -) 135 mg PO DAILY [facility] Last Admin: 09/18/18 10:22 Dose: 135 mg Hydromorphone HCl (Hydromorphone 10 Mg/50 Ml-Ns) 10 mg RESEARCH EPIDEMIOLOGIST RESEARCH EPIDEMIOLOGIST [facility]; Protocol Last Admin: 09/18/18 12:29 Dose: 10 mg Lactated Ringer's (Lactated Ringers Solution) 1,000 mls @ 125 mls/hr IV ASDIR [facility] Last Admin: 09/17/18 17:22 Dose: 125 mls/hr Piperacillin Sod/Tazobactam (Sod 3.375 gm/ Dextrose) 50 mls @ 100 mls/hr IVPB Q8H-IV [facility]; Protocol Last Admin: 09/18/18 10:21 Dose: 100 mls/hr Insulin Aspart (Novolog Vial Sliding Scale -) 1 vial SQ ACHS [facility]; Protocol Last Admin: 09/18/18 06:59 Dose: Not Given Insulin Detemir (Levemir Vial) 20 units SQ ACBK [facility] Last Admin: 09/18/18 07:06 Dose: 20 units Pantoprazole Sodium (Protonix Iv) 40 mg IVPUSH DAILY [facility] Last Admin: 09/18/18 10:21 Dose: 40 mg - Objective Vital Signs: Vital Signs Temperature 98.3 F 09/18/18 13:54 Pulse Rate 99 H 09/18/18 13:54 Respiratory Rate 18 09/18/18 13:54 Blood Pressure 123/84 09/18/18 13:54 O2 Sat by Pulse Oximetry (%) 94 L 09/18/18 12:29 Labs: CBC, BMP 09/17/18 07:15 09/17/18 07:15 Assessment/Plan Lumbar Stenosis s/p laminectomies Pneumonia s/p Sepsis DM HLD Active smoker -- Pt wishes to go home, fevers and leukocytosis resolved -- Blood cultures negative so far -- If pt is discharged home suggest Augmentin XR 2G po BID x 1 week -- F/U with PMD -- Orthopedics following -- Repeat CT Chest as outpatient
[2018-09-18] MEDS ORDERED: oxyCODONE HCL 5 MG TABLET PO PRN ×2 (16:39→16:40)
--- NOTE | 2018-09-18 16:42 | PN ---
Progress Note (short form) - Note Progress Note: 48M POD1 s/p laminectomy and fusion under GA-ETT with dilaudid IV CARE ATTENDANT for post operative pain. Pt states pain well controlled, tolerating orals. D/C CARE ATTENDANT today, switch to oxycodone sliding scale.
[2018-09-18] MEDS: LACTATED RINGERS SOLUTION 1,000 ML IV SCH (17:08)
--- NOTE | 2018-09-18 17:36 | DS ---
Physical Examination Vital Signs: Vital Signs Temperature 98.3 F 09/18/18 13:54 Pulse Rate 99 H 09/18/18 13:54 Respiratory Rate 18 09/18/18 13:54 Blood Pressure 123/84 09/18/18 13:54 O2 Sat by Pulse Oximetry (%) 94 L 09/18/18 12:29 Constitutional: Yes: Well Nourished Eyes: Yes: WNL HENT: Yes: WNL Neck: Yes: WNL Cardiovascular: Yes: WNL Respiratory: Yes: WNL Gastrointestinal: Yes: WNL Renal/: Yes: WNL Musculoskeletal: Yes: Back Pain Extremities: Yes: WNL Edema: No Peripheral Pulses WNL: Yes Integumentary: Yes: WNL Wound/Incision: Yes: Clean/Dry, Well Approximated Neurological: Yes: WNL ...Motor Strength: WNL Psychiatric: Yes: WNL Labs: CBC, BMP 09/17/18 07:15 09/17/18 07:15 Discharge Summary Reason For Visit: SPONDYLOLISTHESIS, LUMBAR REGION Current Active Problems Pneumonia (Acute) Sepsis (Acute) Hospital Course: 48M POD #3 s/p: 1. L3, L4, L5 bilateral laminectomies & facetectomies 2. L3-L4, L4-L5 posterior instrumentation 3. L3-L4, L4-L5 discectomies 4. L3-L4, L4-L5 posterior lumbar interbody fusion 5. L3-L4, L4-L5 insertion biomechanical device 6. L3-L4, L4-L5 posterolateral arthrodesis 7. Bone allograft 8. Bone autograft 9. Bone marrow aspiration 10. Complex wound closure (20cm) no complications. cont pain management. incentive spirometry. COMPUTING TUTOR pump started due to severe pain. cont valium. on stool softeners to avoid opioid induced constipation. -fever, leucocytosis: ID eval appreciated. infiltrates confirmed on chest CT. treated with IV zosyn. CT chest done. no cavitation identified. however, splenomegaly and lymphadenopathy noted. -GI, DVT prophylaxis. -on RISS, levemir 20 units -PT/OT as tolerated Condition: Good - Instructions Disposition: HOME - Home Medications Comprehensive Discharge Medication List: Ambulatory Orders Cyclobenzaprine HCl 10 mg PO PRN PRN 09/10/18 Fenofibrate Nanocrystallized [Fenofibrate] 160 mg PO DAILY 09/10/18 Insulin Glargine,Hum.rec.anlog [Toujeo Max Solostar] 20 unit SQ DAILY 09/10/18 Oxycodone HCl/Acetaminophen [Endocet 10-325 mg Tablet] 1 each PO DAILY 09/10/18
== END 2018-09-18 18:28 | disposition home or self-care (01) | DRG 304 ==
LOC: JSAMEDAYSX 06:19 → J8W 17:28
PROVIDERS: ADMIT Orthopaedic Surgery Orthopaedic Surgery of the Spine; ATTEND Orthopaedic Surgery Orthopaedic Surgery of the Spine
PROC: 0SG1071 Fusion of 2 or more Lumbar Vertebral Joints with Autologous Tissue Substitute, Posterior Approach, Posterior Column, Open Approach (ICD-10-PCS; 2018-09-14)
PROC: 0ST20ZZ Resection of Lumbar Vertebral Disc, Open Approach (ICD-10-PCS; 2018-09-14)
PROC: 07DR3ZZ Extraction of Iliac Bone Marrow, Percutaneous Approach (ICD-10-PCS; 2018-09-14)
PROC: 4A1104G Monitoring of Peripheral Nervous Electrical Activity, Intraoperative, Open Approach (ICD-10-PCS; 2018-09-14)
PROC: B01BZZZ Fluoroscopy of Spinal Cord (ICD-10-PCS; 2018-09-14)
PROC: 0SG10AJ Fusion of 2 or more Lumbar Vertebral Joints with Interbody Fusion Device, Posterior Approach, Anterior Column, Open Approach (ICD-10-PCS; principal; 2018-09-14 08:00)
DX: M48.062 Spinal stenosis, lumbar region with neurogenic claudication (principal); M51.16 Intervertebral disc disorders with radiculopathy, lumbar region; M51.36 Other intervertebral disc degeneration, lumbar region; M53.2X6 Spinal instabilities, lumbar region; F17.210 Nicotine dependence, cigarettes, uncomplicated; D72.829 Elevated white blood cell count, unspecified; E78.5 Hyperlipidemia, unspecified; J18.9 Pneumonia, unspecified organism; R50.82 Postprocedural fever; E11.9 Type 2 diabetes mellitus without complications; R16.1 Splenomegaly, not elsewhere classified; R59.1 Generalized enlarged lymph nodes; A41.9 Sepsis, unspecified organism
CPT/HCPCS: 36415; 71045-TC-FY; 71250-TC; 76000-TC-FY; 80048; 81003; 82947; 82962; 85027; 86480; 86850; 86900; 86901; 87040; 87086; 88304-TC; 94760; 97116-GP; 97162-GP; J0131; J1644